=== PATIENT | male | born 1980 | race Two or more races ===

== ENCOUNTER 2016-07-29 22:59 | Emergency (ER) | payer MEDICAID, OTHER ==
[~2016-07-29] VITALS: Ht 170.2 cm; Wt 69.0 kg
[2016-07-29 23:02] VITALS: Ht 170.2 cm; Wt 69.0 kg
[2016-07-30] MEDS ORDERED: ONDANSETRON (ODT) 4 MG TAB ODT STA (00:59)
[2016-07-30] MEDS ORDERED: HYDROCODONE/APAP (10/325) TAB PO ONE (01:00)
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
--- NOTE | 2016-07-30 02:11 | RADRPT ---
PROCEDURE: CT BRAIN WITHOUT CONTRAST CLINICAL INDICATION: 36-year-old male with headaches and dizziness. TECHNIQUE: The study was performed utilizing a [employer] VCT 64-slice CT scanner. Direct axia l sections were obtained from the foramen magnum to the vertex without the use of intravenous contra st material. Sagittal and coronal reformations were obtained. Automated exposure control and iterat mark reconstruction techniques were utilized for this examination. The images were viewed on a PACS workstation. CTD/vol = 43.8 mGy; Total Exam DLP = 720.2 mGy-cm. COMPARISON: None. FINDINGS: The ventricles have a normal size, shape and position. There is no evidence for mass effect or midl ine shift. There are no intracranial areas of abnormal attenuation. There is no evidence for acute intra or extra-axial blood. The bony calvarium is intact. There is mild mucosal thickening within t he partially visualized ethmoid air cells. No air-fluid levels are noted. The mastoid air cells ar e without significant soft tissue. IMPRESSION: 1. The intracranial contents are unremarkable on this noncontrast CT scan of the brain. 2. Mild mucosal thickening partially visualized ethmoid air cells. .Bubba Patton MD, MD Date Time Electronically viewed and signed by .Bubba Patton MD, on 07/30/2016 02:11 .Julia/
[2016-07-30] MEDS ORDERED: LORA1TAB PO (02:14)
[2016-07-30] MEDS ORDERED: HYDR-902 PO (02:14)
[2016-07-30] MEDS ORDERED: ONDA4TAB14 PO (02:14)
[2016-07-30] MEDS ORDERED: NAPR-260 PO (02:14)
[2016-07-30 02:34] VITALS: BP 122/68; PULSE 81; RESP 20; TEMP 98.7
== END 2016-07-30 02:35 | disposition home or self-care (01) ==
LOC: FTE 22:59
DX: S09.93XA Unspecified injury of face, initial encounter (principal); R51 Headache; Y08.89XA Assault by other specified means, initial encounter
CPT/HCPCS: 70450; Z7502; Z7610

== ENCOUNTER 2017-08-17 22:22 | Emergency (ER) | END 2017-08-18 04:09 | disposition home or self-care (01) ==